=== PATIENT | male | born 1995 | race African-American/Black ===

== ENCOUNTER 2019-12-23 21:38 | Emergency (ER) | payer OTHER ==
[~2019-12-23] VITALS: Ht 172.7 cm; Wt 68.0 kg
[2019-12-23 21:46] VITALS: BP 126/73
== END 2019-12-23 23:58 | disposition left against medical advice (07) ==
LOC: ER 21:38
DX: Z53.21 Procedure and treatment not carried out due to patient leaving prior to being seen by health care provider (principal)